=== PATIENT | female | born 2000 | race Caucasian/White ===

== ENCOUNTER 2023-03-04 03:47 | Emergency (ER) | payer SELFPAY ==
[~2023-03-04] VITALS: Ht 175.3 cm; Wt 145.5 kg
[2023-03-04 03:52] VITALS: TEMP 98
[2023-03-04 05:07] LABS: COLLECTION METHOD CLEAN CATCH
[2023-03-04 05:32] LABS: URINE COLOR Yellow (YELLOW)
[2023-03-04 05:33] LABS: URINE APPEARANCE Cloudy (CLEAR/HAZY); URINE BLOOD 1+ (NEGATIVE); URINE GLUCOSE Negative (NEGATIVE); URINE KETONE Negative (NEGATIVE); URINE NITRATE Positive (NEGATIVE); URINE PROTEIN(semi-quant) Negative (NEGATIVE); URINE UROBILINOGEN 0.2 E.U/dL (0.2-1.0)
[2023-03-04 05:34] LABS: MUCOUS Present (NOT PRESENT); SQUAMOUS EPITHELIAL >50 /hpf (0-10); URINE BACTERIA Many /hpf (NONE SEEN); URINE RBC 0-2 /hpf (0-2)
[2023-03-04] MEDS ORDERED: CEPHALEXIN500 M1 PO (05:39)
[2023-03-04 05:51] VITALS: BP 160/90; PULSE 80
== END 2023-03-04 05:51 | disposition home or self-care (01) ==
LOC: COL.ER 03:47
PROVIDERS: Emergency Medicine
DX: N39.0 Urinary tract infection, site not specified (principal)

== ENCOUNTER 2023-06-07 16:09 | Emergency (ER) | payer SELFPAY ==
[~2023-06-07] VITALS: Ht 177.8 cm; Wt 140.9 kg
[~2023-06-07 16:09] MED LIST: CELEXA 20MG20 MG/TAB PO; CEPHALEXIN500 M1 PO
[2023-06-07 16:25] VITALS: TEMP 98.1
[2023-06-07 16:53] LABS: COLLECTION METHOD CLEAN CATCH
[2023-06-07] MEDS ORDERED: Ondansetron 4 MG/2 ML VIAL IV ONE (17:00)
[2023-06-07] MEDS ORDERED: NS 1,000 ML IV ONE (17:00)
[2023-06-07 17:21] LABS: URINE APPEARANCE Turbid (CLEAR/HAZY); URINE COLOR Yellow (YELLOW); URINE GLUCOSE Negative (NEGATIVE); URINE KETONE 2+ (NEGATIVE); URINE PROTEIN(semi-quant) Negative (NEGATIVE)
[2023-06-07 17:22] LABS: URINE BACTERIA Moderate /hpf (NONE SEEN); URINE BLOOD TRACE-INTACT (NEGATIVE); URINE NITRATE Positive (NEGATIVE); URINE UROBILINOGEN 0.2 E.U/dL (0.2-1.0)
[2023-06-07 17:36] LABS: BASO % 0.4 % (0.0-2.0); EOS # 0.1 K/mm3 (0.0-0.7); EOS % 1.1 % (0.0-4.0); GRAN # 5.9 K/mm3 (1.4-6.5); GRAN % 65.1 % (42.2-75.2); HEMATOCRIT 42.8 % (35.0-45.0); HEMOGLOBIN 13.7 g/dl (12.0-15.0); LYMPH # 2.3 K/mm3 (1.2-3.4); LYMPH % 25.8 % (20.0-51.0); MEAN CELL VOLUME 85 fl (80.0-95.0); MEAN CORPUSCULAR HEMOGLOBIN 27 pg (26-32); MEAN CORPUSCULAR HGB CONC 32 g/dl (33.0-37.0); MEAN PLATELET VOLUME 10.5 fl (7.4-10.4); MONO # 0.6 K/mm3 (0.1-0.6); PLATELET COUNT 344 K/mm3 (130-400); RED BLOOD COUNT 5.05 M/mm3 (4.10-5.30); REDCELL DISTRIBUTION WIDTH-CV 15.1 % (11.5-14.5)
[2023-06-07 17:45] LABS: ALBUMIN 3.9 gm/dL (3.5-5.0); BILIRUBIN,TOTAL 0.4 mg/dL (0.2-1.2); C-REACTIVE PROTEIN 1.18 mg/dL (0.00-0.50); CALCIUM 9.6 mg/dL (8.4-10.2); CREATININE, serum 0.77 mg/dL (0.57-1.11); POTASSIUM 3.8 mmol/L (3.5-4.5); TOTAL PROTEIN 7.2 gm/dL (6.2-8.1)
[2023-06-07] MEDS ORDERED: Nitrofurantoin (Mono/Macro) 100 MG CAP PO ONE (19:15)
[2023-06-07] MEDS ORDERED: ZOFRAN ODT4 MG PO (19:16)
[2023-06-07] MEDS ORDERED: MACROBID 1100 MG/CAP PO (19:16)
[2023-06-07 19:22] VITALS: BP 138/89; PULSE 94
== END 2023-06-07 19:31 | disposition home or self-care (01) ==
LOC: COL.ER 16:09
PROVIDERS: Emergency Medicine; Nurse Practitioner
DX: O21.9 Vomiting of pregnancy, unspecified (principal); O23.41 Unspecified infection of urinary tract in pregnancy, first trimester; N39.0 Urinary tract infection, site not specified
CPT/HCPCS: J2405; J7030